=== PATIENT | male | born 1960 | race American Indian/Alaskan Native ===

== ENCOUNTER 2018-09-10 21:41 | Emergency (ER) | payer OTHER ==
[~2018-09-10 21:41] MED LIST: ACE325 PO; INDERAL; KET10 PO; PAN20 PO; PER PO
[2018-09-10] MEDS ORDERED: SIMV-49 PO (21:50)
[2018-09-10] MEDS ORDERED: ENT KIT ONE (22:15)
[2018-09-10] MEDS ORDERED: LABETALOL HCL 20 MG/4 ML SYR IVP ONE (22:15)
[2018-09-10] MEDS ORDERED: TRANEXAMIC AC 1000 MG/10ML SDV 1,000 MG in NS(*) 0.9% 50 ML BAG 50 ML ONE (22:15)
--- NOTE | 2018-09-10 22:15 | ER Report ---
History and Physical Time Seen By MD: 22:15 Hx. of Stated Complaint: PT HERE FROM URGENT CARE. BLOODY NOSE THAT STARTED AROUND 16:45. PT HAS NASAL PACKING IN LEFT NOSTRIL. PT HYPERTENSIVE. HPI/ROS CHIEF COMPLAINT: nosebleed HISTORY OF PRESENT ILLNESS: This is a 57 year old male. He was at urgent care with a nosebleed. Packing with lidocaine with epinephrine used. Unable to control bleeding, likely because of elevated blood pressure. Started at work spontaneously. No history of bleeding significantly in the past. No other bleeding or bruising. Left nasal passage. Allergies: Coded Allergies: No Known Drug Allergies (Verified , 09/10/18) Home Meds Reported Medications Simvastatin (SIMVASTATIN) 20 Mg Tablet, 5 MG PO HS, TAB 09/10/18 Discontinued Reported Medications Oxycodone/Acetaminophen (OXYCODONE/ACETAMINOPHEN 5MG/325 MG) 5 Mg/325 Mg Tab, 1 - 2 TAB PO Q4H PRN, #30 08/03/12 Ketorolac Tromethamine (Toradol) 10 Mg Tab, 10 MG PO QID, #20 08/03/12 [None] No Conflict Check 07/28/12 Reviewed Nurses Notes: Yes Constitutional Vital Sign - Last 24 Hours 09/10/18 09/10/18 09/10/18 09/10/18 21:46 21:56 22:11 22:26 Temp 99.2 Pulse 90 81 79 86 Resp 16 B/P (MAP) 197/125 Pulse Ox 94 95 94 96 O2 Delivery Room Air 09/10/18 09/10/18 09/10/18 09/10/18 22:27 22:30 22:50 22:56 Pulse 76 B/P (MAP) 189/122 (144) 187/122 (143) 160/128 (139) Pulse Ox 94 09/10/18 09/10/18 09/10/18 09/10/18 23:00 23:10 23:11 23:20 Pulse 79 B/P (MAP) 154/109 (124) 151/103 (119) 178/131 (147) Pulse Ox 93 09/10/18 09/10/18 09/10/18 09/10/18 23:26 23:30 23:35 23:40 Pulse 78 76 B/P (MAP) 166/111 (129) 170/107 (128) Pulse Ox 92 94 09/10/18 09/11/18 09/11/18 09/11/18 23:50 00:00 00:05 00:10 Pulse 76 B/P (MAP) 173/114 (133) 173/102 (125) 165/116 (132) Pulse Ox 92 94 Physical Exam General Appearance: Alert, no distress. Eyes: Pupils equal and round no pallor or injection. ENT: Mucous membranes are moist. Nasal mucosa with packing in left nasal passag e, bleeding around this. Posterior oropharynx has small blood draining. Skin: No bruising or rashes. DIFFERENTIAL DIAGNOSIS: After history and physical exam differential diagnosis was considered for nosebleed and elevated blood pressure. Will need to lower the blood pressure, check labs, and re-address packing with some tranexemic acid once blood pressure is better. Medical Decision Making Data Points Result Diagram: 09/10/18222909/10/182229 Laboratory Hematology Test 09/10/18 22:30 Red Blood Count 5.23 M/uL (4.00-5.60) Mean Corpuscular Volume 85.6 fL (80.0-96.0) Mean Corpuscular Hemoglobin 29.6 pg (26.0-33.0) Mean Corpuscular Hemoglobin Concent 34.6 g/dL (32.0-36.0) Red Cell Distribution Width 13.1 % (11.5-14.5) Mean Platelet Volume 8.9 fL (7.2-11.1) Neutrophils (%) (Auto) 53.6 % (39.4-72.5) Lymphocytes (%) (Auto) 30.8 % (17.6-49.6) Monocytes (%) (Auto) 6.9 % (4.1-12.4) Eosinophils (%) (Auto) 8.0 % (0.4-6.7) Basophils (%) (Auto) 0.7 % (0.3-1.4) Nucleated RBC Relative Count (auto) 0.0 /100WBC Neutrophils # (Auto) 4.5 K/uL (2.0-7.4) Lymphocytes # (Auto) 2.6 K/uL (1.3-3.6) Monocytes # (Auto) 0.6 K/uL (0.3-1.0) Eosinophils # (Auto) 0.7 K/uL (0.0-0.5) Basophils # (Auto) 0.1 K/uL (0.0-0.1) Nucleated RBC Absolute Count (auto) 0.00 K/uL Prothrombin Time 12.4 seconds (12.0-14.4) Prothromb Time International Ratio 0.92 Activated Partial Thromboplast Time 32 seconds (23-35) Sodium Level 138 mmol/L (137-145) Potassium Level 3.9 mmol/L (3.5-5.0) Chloride Level 110 mmol/L (98-107) Carbon Dioxide Level 21 mmol/L (22-30) Blood Urea Nitrogen 17 mg/dl (9-21) Creatinine 0.80 mg/dl (0.66-1.25) Glomerular Filtration Rate Calc > 60.0 Random Glucose 103 mg/dl (75-110) Calcium Level 9.4 mg/dl (8.4-10.2) Total Bilirubin 0.3 mg/dl (0.2-1.3) Aspartate Amino Transf (AST/SGOT) 29 U/L (0-35) Alanine Aminotransferase (ALT/SGPT) 41 U/L (0-56) Alkaline Phosphatase 85 U/L (0-126) Total Protein 7.6 g/dl (6.3-8.2) Albumin 4.4 g/dl (3.5-5.0) Chemistry Test 09/10/18 22:30 White Blood Count 8.3 k/uL (4.5-11.0) Red Blood Count 5.23 M/uL (4.00-5.60) Hemoglobin 15.5 g/dL (14.0-18.0) Hematocrit 44.8 % (42.0-52.0) Mean Corpuscular Volume 85.6 fL (80.0-96.0) Mean Corpuscular Hemoglobin 29.6 pg (26.0-33.0) Mean Corpuscular Hemoglobin Concent 34.6 g/dL (32.0-36.0) Red Cell Distribution Width 13.1 % (11.5-14.5) Platelet Count 284 K/uL (150-450) Mean Platelet Volume 8.9 fL (7.2-11.1) Neutrophils (%) (Auto) 53.6 % (39.4-72.5) Lymphocytes (%) (Auto) 30.8 % (17.6-49.6) Monocytes (%) (Auto) 6.9 % (4.1-12.4) Eosinophils (%) (Auto) 8.0 % (0.4-6.7) Basophils (%) (Auto) 0.7 % (0.3-1.4) Nucleated RBC Relative Count (auto) 0.0 /100WBC Neutrophils # (Auto) 4.5 K/uL (2.0-7.4) Lymphocytes # (Auto) 2.6 K/uL (1.3-3.6) Monocytes # (Auto) 0.6 K/uL (0.3-1.0) Eosinophils # (Auto) 0.7 K/uL (0.0-0.5) Basophils # (Auto) 0.1 K/uL (0.0-0.1) Nucleated RBC Absolute Count (auto) 0.00 K/uL Prothrombin Time 12.4 seconds (12.0-14.4) Prothromb Time International Ratio 0.92 Activated Partial Thromboplast Time 32 seconds (23-35) Glomerular Filtration Rate Calc > 60.0 Calcium Level 9.4 mg/dl (8.4-10.2) Total Bilirubin 0.3 mg/dl (0.2-1.3) Aspartate Amino Transf (AST/SGOT) 29 U/L (0-35) Alanine Aminotransferase (ALT/SGPT) 41 U/L (0-56) Alkaline Phosphatase 85 U/L (0-126) Total Protein 7.6 g/dl (6.3-8.2) Albumin 4.4 g/dl (3.5-5.0) Coagulation Test 09/10/18 22:30 Prothrombin Time 12.4 seconds Prothromb Time International Ratio 0.92 Activated Partial Thromboplast Time 32 seconds ED Course/Re-evaluation Clinical Indication for ER IV: IV Access ED Course An IV was started and the patient was given labetalol 20 mg. Blood pressure did come down. Packing was removed and used some atomized tranexemic acid followed by nasal clamp. Still with some oozing of the back of the area of the anterior nasal septum. Packing was done using a rapid rhino 4.5cm balloon with 3cc of air and coated in further tranexemic acid. Bleeding controlled. Labs normal. Will return tomorrow for removal of packing. Decision to Disposition Date: Sep 10, 2018 Decision to Disposition Time: 23:58 Depart Departure Latest Vital Signs Vital Signs Date Time Temp Pulse Resp B/P (MAP) Pulse Ox O2 Delivery O2 Flow Rate FiO2 09/11/18 00:10 165/116 (132) 09/11/18 00:05 94 09/10/18 23:50 76 09/10/18 21:46 99.2 16 Room Air Impression: Primary Impression: Nosebleed Additional Impression: Elevated blood pressure reading Condition: Improved Disposition: HOME OR SELF-CARE Referrals: REJI ADAIR DO (PCP) Patient Instructions: Nosebleed (ED) Additional Instructions: Keep the nasal packing in place until tomorrow evening. Return to the ER and we can take the packing out at that time and re-evaluate the area that was bleeding. Return sooner if needed for further bleeding. Problem Qualifiers SINDY LEE MD Sep 10, 2018 22:15
[2018-09-10] MEDS ORDERED: TRANEXAMIC AC 1000 MG/10ML SDV ONE (22:35)
[2018-09-10 22:39] LABS: PLATELET COUNT, AUTOMATED 284 K/uL (150-450)
[2018-09-10 22:47] LABS: INR 0.92
[2018-09-11] MEDS ORDERED: COCAINE HCL SOLN 4% 4 ML BTL TP ONE (23:50)
[2018-09-11] MEDS ORDERED: amLODIPine BESYL(*) 5 MG TAB PO ONE (23:50)
[2018-09-12] MEDS ORDERED: MAG HYD/AL HYD/SIMETH 30ML UDC PO ONE (01:10)
[2018-09-12] MEDS ORDERED: LORazepam 0.5 MG TAB PO ONE (01:10)
[2018-09-12] MEDS ORDERED: ONDANSETRON 4 MG/2 ML VIAL IVP ONE (02:55)
[2018-09-12] MEDS ORDERED: LABETALOL HCL 20 MG/4 ML SYR IVP ONE (02:55)
[2018-09-12] MEDS ORDERED: NS(*) 0.9% 1000 ML BAG 1,000 ML IV ONE (02:55)
[2018-09-12] MEDS ORDERED: TRANEXAMIC AC 1000 MG/10ML SDV 1,000 MG in NS(*) 0.9% 50 ML BAG 50 ML IVPB ONE (02:55)
[2018-09-12 03:42] LABS: PLATELET COUNT, AUTOMATED 319 K/uL (150-450)
[2018-09-12 03:50] LABS: INR 0.97
[2018-09-12] MEDS ORDERED: LOSA50TA80 PO (04:54)
[2018-09-12] MEDS ORDERED: LOSARTAN POTASSIUM 50 MG TAB PO ONE (04:55)
[2018-09-12] MEDS ORDERED: LOR5/325 PO (05:13)
[2018-09-12 05:15] VITALS: BP 163/116
[2018-09-12] MEDS ORDERED: ACET/HYDROC 5/325MG TH ER ONLY 2 TAB/BOTTLE PO ONE (05:15)
[2018-09-13] MEDS ORDERED: CALC-515 PO (13:19)
[2018-09-20] MEDS ORDERED: PHENYLEPHRINE 0.5% 15 ML BTL ONE (10:20)
[2018-09-20] MEDS ORDERED: [UNRECOGNIZED DRUG - OTHER] IVPB ONE (10:20)
[2018-09-20] MEDS ORDERED: NS 0.9% IVPB ONE (10:20)
== END 2018-09-12 05:26 | disposition home or self-care (01) ==
LOC: ER 22:09
DX: R04.0 Epistaxis (principal); R03.0 Elevated blood-pressure reading, without diagnosis of hypertension
CPT/HCPCS: 30901; 85025; 85610; 85730; 96365; 96375; 99284; J7050; 82040; 82247; 82310; 82374; 82435; 82565; 82947; 84075; 84132; 84155; 84295; 84450; 84460; 84520; J2405; J7030

== ENCOUNTER 2018-09-11 18:55 | Emergency (ER) | payer OTHER ==
[~2018-09-11 18:55] MED LIST changes: +SIMV-49 PO
--- NOTE | 2018-09-11 19:09 | ER Report ---
History and Physical Time Seen By MD: 19:09 Hx. of Stated Complaint: PT RETURN WITH NASAL PACKING. HPI/ROS CHIEF COMPLAINT: Follow-up nosebleed HISTORY OF PRESENT ILLNESS: Had packing placed last night, here for removal. No further bleeding Allergies: Coded Allergies: No Known Drug Allergies (Verified , 09/11/18) Home Meds Active Scripts Hydrocodone Bit/Acetaminophen (HYDROCODON-ACETAMINOPHEN 5-325) 1 Each Tablet, 1 EACH PO Q4H PRN for PAIN, #8 TAB 0 Refills Prov:SINDY LEE MD 09/12/18 Losartan Potassium (LOSARTAN POTASSIUM) 50 Mg Tablet, 50 MG PO QDAY, #30 TAB 0 Refills Prov:SINDY LEE MD 09/12/18 Reported Medications Simvastatin (SIMVASTATIN) 20 Mg Tablet, 5 MG PO HS, TAB 09/10/18 Discontinued Reported Medications Oxycodone/Acetaminophen (OXYCODONE/ACETAMINOPHEN 5MG/325 MG) 5 Mg/325 Mg Tab, 1 - 2 TAB PO Q4H PRN, #30 08/03/12 Ketorolac Tromethamine (Toradol) 10 Mg Tab, 10 MG PO QID, #20 08/03/12 [None] No Conflict Check 07/28/12 Reviewed Nurses Notes: Yes Constitutional Vital Sign - Last 24 Hours 09/11/18 09/11/18 09/11/18 09/11/18 19:00 19:01 19:10 19:25 Temp 99.0 Pulse 78 72 76 Resp 18 B/P (MAP) 196/143 196/143 (160) Pulse Ox 96 93 97 O2 Delivery Room Air 09/11/18 09/11/18 09/11/18 09/11/18 19:30 19:40 19:55 20:00 Pulse 78 75 B/P (MAP) 187/117 (140) 165/110 (128) Pulse Ox 95 92 09/11/18 09/11/18 09/11/18 20:05 21:05 21:30 Pulse 86 B/P (MAP) 151/114 (126) 170/114 (132) Pulse Ox 95 Physical Exam Rapid Rhino is in place in the left nostril. No evidence of bleeding around the packing. No bleeding in the right nostril. No bleeding in the posterior nasal pharynx Medical Decision Making ED Course/Re-evaluation Clinical Indication for ER IV: IV Access ED Course Rapid Rhino was deflated and packing removed. The patient was observed for a significant time here in the ER and no further bleeding was evident. His blood pressure still is running high. As noted last night, history of white coat hypertension with normal pressures reported outside of the hospital. I did ask him to take his blood pressures on a regular basis and keep track of those in a notebook and bring to his primary care provider to determine if he needs any further treatment for his blood pressure. The patient came back later with recurrent nose bleed. He was waiting in the car at the grocery store when the nose began bleeding again. Large amount. He held direct pressure as instructed but the bleeding did not stop. Re-admitted to a room and re-evaluation. Blood pressure still high. A new Rapid Rhino was placed in the left nasal passage after application of cocaine solution with an atomizer. Amlodipine 5mg oral dose given for blood pressure. After waiting for some time, he had bleeding coming from the right nasal passage, and still bleeding around the packing on the left. Still with some post-nasal drainage as well. Very anxious about this. Tried 0.5mg Ativan to help with anxiety about this problem and help with blood pressure. Also some Maalox to help with some reflux. Blood pressure still not coming down well and still with some leaking of blood around the packing. He had a few episodes of emesis, looking like swallowed blood. IV was started. Gave Labetolol 20mg IV. Zofran 4mg IV. Started Tranexemic acid 1000mg IV. Removed the packing, evacuated the nasal passage and used neosynephrine nasal spray and repeat use of packing balloon. Good hemostasis and blood pressure improved. Starting on Losartan 50mg once a day. Will see him on Thursday night for packing removal and re-evaluate blood pressure at that time. Decision to Disposition Date: Sep 11, 2018 Decision to Disposition Time: 21:27 Depart Departure Latest Vital Signs Vital Signs Date Time Temp Pulse Resp B/P (MAP) Pulse Ox O2 Delivery O2 Flow Rate FiO2 09/11/18 21:30 170/114 (132) 09/11/18 20:05 86 95 09/11/18 19:00 99.0 18 Room Air Impression: Primary Impression: Nosebleed Additional Impression: Elevated blood pressure reading Condition: Improved Disposition: HOME OR SELF-CARE Referrals: REJI ADAIR DO (PCP) Patient Instructions: Nosebleed (ED) Additional Instructions: Follow-up with your regular doctor for discussion regarding your blood pressure. Measure your blood pressure each day and keep track to bring to your doctor. Hold direct pressure if bleeding happens again, and return to the ER if this does not stop. No rubbing or blowing your nose for a couple of days. You can use a small amount of vaseline or antibiotic ointment in the nose to help avoid the inside of the nose drying out and causing bleeding. Problem Qualifiers SINDY LEE MD Sep 11, 2018 19:09
[2018-09-11 21:30] VITALS: BP 170/114
[2018-09-12] MEDS ORDERED: MAG HYD/AL HYD/SIMETH 30ML UDC ONE (01:26)
[2018-09-12] MEDS ORDERED: LORazepam 0.5 MG TAB ONE (01:26)
[2018-09-12] MEDS ORDERED: ONDANSETRON 4 MG/2 ML VIAL ONE (03:07)
[2018-09-12] MEDS ORDERED: TRANEXAMIC AC 1000 MG/10ML SDV ONE (03:08)
[2018-09-12] MEDS ORDERED: LABETALOL HCL 100 MG/20ML VIAL ONE (03:10)
[2018-09-12] MEDS ORDERED: NS(*) 0.9% 100 ML BAG 0 ML ONE (03:10)
[2018-09-12] MEDS ORDERED: NS(*) 0.9% 50 ML BAG 50 ML ONE (03:12)
[2018-09-12] MEDS ORDERED: LOSA50TA80 PO (04:54)
[2018-09-12] MEDS ORDERED: LOSARTAN POTASSIUM 50 MG TAB ONE (05:04)
[2018-09-12] MEDS ORDERED: LOR5/325 PO (05:13)
[2018-09-12] MEDS ORDERED: ACET/HYDROC 5/325MG TH ER ONLY 2 TAB/BOTTLE ONE (05:22)
[2018-09-12] MEDS ORDERED: PHENYLEPHRINE 0.5% 15 ML BTL ONE (05:52)
[2018-09-13] MEDS ORDERED: CALC-515 PO (13:19)
== END 2018-09-11 21:52 | disposition home or self-care (01) ==
LOC: ER 19:16
DX: R04.0 Epistaxis (principal); R03.0 Elevated blood-pressure reading, without diagnosis of hypertension
CPT/HCPCS: 99283

== ENCOUNTER 2018-09-12 22:09 | Emergency (ER) | payer OTHER ==
[~2018-09-12 22:09] MED LIST changes: +LOR5/325 PO; +LOSA50TA80 PO
[2018-09-13] MEDS ORDERED: CALC-515 PO (13:19)
== END 2018-09-12 22:10 | disposition home or self-care (01) ==
LOC: ER 22:09
DX: Z02.9 Encounter for administrative examinations, unspecified (principal)
CPT/HCPCS: 85025; 85610; 85730; J2405; J7030; J7050

== ENCOUNTER → 2018-09-27 | Outpatient (CLI) | payer OTHER ==
[~2018-09-27] MED LIST changes: +CALC-515 PO
--- NOTE | 2018-09-27 12:10 | EKG ---
FACILITY: PATIENT NAME: JULY GALINDO : [id number] MR: [id number] V: [id number] EXAM DATE: ORDERING PHYSICIAN: REJI ADAIR TECHNOLOGIST: ELÍAS Raya Reason : CP Blood Pressure : / mmHG Vent. Rate : 092 BPM Atrial Rate : 092 BPM P-R Int : 164 ms QRS Dur : 084 ms QT Int : 348 ms P-R-T Axes : 071 066 016 degrees QTc Int : 430 ms Normal sinus rhythm Normal ECG When compared with ECG of 03-AUG-2012 07:30, Nonspecific T wave abnormality no longer evident in Anterolateral leads Confirmed by DANIELLA ZENDEJAS ([id number]) on 09/27/2018 10:09:43 PM Referred By: GIOVANY Confirmed By:DANIELLA ZENDEJAS
== END ==
LOC: RESP 11:55
PROVIDERS: ATTEND Family Medicine
DX: I10 Essential (primary) hypertension (principal); R07.9 Chest pain, unspecified
CPT/HCPCS: 93005

== ENCOUNTER → 2019-03-29 | Outpatient (CLI) | payer OTHER ==
[~2019-03-29] MED LIST changes: +AMLO-125 PO
== END ==
LOC: LAB 15:15
PROVIDERS: ATTEND Urology
DX: Z12.5 Encounter for screening for malignant neoplasm of prostate (principal)
CPT/HCPCS: 36415; 84153